=== PATIENT | female | born 1960 | race Caucasian/White ===

== ENCOUNTER → 2017-01-18 | Outpatient (CLI) | payer OTHER ==
--- NOTE | 2017-01-19 10:33 | MM ---
Reason for exam: screening (asymptomatic). Last mammogram was performed 1 year and 8 months ago. History: Patient is nulliparous. Physical Findings: A clinical breast exam by your physician is recommended on an annual basis and results should be correlated with mammographic findings. MG Screening Mammo w CAD Bilateral CC and MLO view(s) were taken. Prior study comparison: June 03, 2015, bilateral MG screening mammo w CAD. April 17, 2013, bilateral digital screening mammo w/CAD. The breast tissue is heterogeneously dense. This may lower the sensitivity of mammography. Finding: There is a 7 mm equal density (isodense), oval mass in the left breast. ASSESSMENT: Incomplete: need additional imaging evaluation, BI-RAD 0 RECOMMENDATION: Special view mammogram of the left breast. If lesion persists on supplemental views, image directed ultrasound is recommended. [facility] will attempt to contact patient to return for supplemental views and ultrasound if indicated.
== END | disposition home or self-care (01) ==
LOC: RADMAMWWP 08:51
PROVIDERS: ATTEND Obstetrics & Gynecology
DX: Z12.31 Encounter for screening mammogram for malignant neoplasm of breast (principal); R92.2 Inconclusive mammogram

== ENCOUNTER → 2017-01-20 | Outpatient (CLI) | payer OTHER ==
--- NOTE | 2017-01-25 13:50 | MM ---
Reason for exam: additional evaluation requested from abnormal screening. Last mammogram was performed less than 1 month ago. History: Patient is nulliparous. Taking estrogen for 2 months beginning at age 56. Took other hormone for 6 years beginning at age 50. Physical Findings: Nurse did not find any significant physical abnormalities on exam. MG 3D Work Up W/Cad LT CC and MLO view(s) were taken of the left breast. Prior study comparison: January 18, 2017, bilateral MG screening mammo w CAD. June 03, 2015, bilateral MG screening mammo w CAD. There are scattered fibroglandular densities. Finding: There is a typically stable benign 4 mm mass located 5 cm from the nipple in the lower outer quadrant, middle position of the left breast. No significant changes in finding since January 18, 2017 and June 03, 2015. These results were verbally communicated with the patient and result sheet given to the patient on 01/20/17. ASSESSMENT: Probably benign, BI-RAD 3 RECOMMENDATION: Follow-up diagnostic mammogram of the left breast in 6 months.
== END | disposition home or self-care (01) ==
LOC: RADMAMWWP 13:50
PROVIDERS: ATTEND Obstetrics & Gynecology
DX: R92.8 Other abnormal and inconclusive findings on diagnostic imaging of breast (principal)
CPT/HCPCS: G0206; G0279

== ENCOUNTER → 2017-06-08 | Outpatient (CLI) | payer OTHER ==
--- NOTE | 2017-06-08 09:34 | MM ---
Reason for exam: follow-up at short interval from prior study. Last mammogram was performed 5 months ago. History: Patient is nulliparous. Taking estrogen for 2 months beginning at age 56. Took other hormone for 6 years beginning at age 50. Physical Findings: Nurse did not find any significant physical abnormalities on exam. MG 3D Diag Mammo W/Cad LT CC, MLO, and ML view(s) were taken of the left breast. Prior study comparison: January 20, 2017, left breast MG 3d work up w/cad LT. January 18, 2017, bilateral MG screening mammo w CAD. The breast tissue is heterogeneously dense. This may lower the sensitivity of mammography. A 6mm circumscribed oval mass in the lower outer quadrant middle to posterior depth is unchanged for 6 months and could represent a benign lesion like a cyst. Continued short interval follow up recommended. These results were verbally communicated with the patient and result sheet given to the patient on 06/08/17. ASSESSMENT: Probably benign, BI-RAD 3 RECOMMENDATION: Follow-up diagnostic mammogram of both breasts in 6 months. Back on schedule.
--- NOTE | 2017-06-08 13:37 | BD ---
EXAMINATION TYPE: MG DEXA axial skeleton. DATE OF EXAM: 06/08/2017 COMPARISON: NONE CLINICAL HISTORY: 56-year-old female with osteopenia Height: 5 FT 6 IN Weight: 184 FRAX RISK QUESTIONS: Alcohol (3 or more units per day): NO Family History (Parent hip fracture): YES Glucocorticoids (More than 3mos): NO (Ex: prednisone, prednisolone, methylprednisolone, dexamethasone, and hydrocortisone). History of Fracture in Adulthood: NO Secondary Osteoporosis: 1. Type 1 Diabetes: NO 2. Hyperthyroidism: NO 3. Menopause before 45: NO 4. Malnutrition: NO 5. Chronic liver disease: NO Rheumatoid Arthritis: NO Current Tobacco Use: NO RISK FACTORS HISTORY OF: Active: YES Postmenopausal woman: PART HYST AGE 36 Take estrogen and/or progesterone medications: ESTROGEN PATCH How lon-8 MONTHS MEDICATIONS: Thyroid Medications: YES Which medication: LEVOTHYROXINE How Lon YRS Additional Medications: ESTROGEN PATCH,LEVOTHYROXINE, LISINOPRIL Additional History: EXAM MEASUREMENTS: Bone mineral densitometry was performed using the [employer] System. Bone mineral density as measured about the Lumbar spine is: ----- L1-L4(G/cm2): 1.315 T Score Values are as follows: ----- L2: 0.8 ----- L3: 1.1 ----- L4: 1.8 ----- L1-L4: 1.1 Bone mineral density has: Decreased -1.0% since study of: 2012 Bone mineral density about the R hip (g/cm2): 0.832 Bone mineral density about the L hip (g/cm2): 0.833 T Score values are as follows: -----R Neck: -1.5 -----L Neck: -1.5 -----R Total: 0.2 -----L Total: 0.4 Bone mineral density has: Decreased -1.3 % since study of: 2012 IMPRESSION: Osteopenia (T Score between -2.5 and -1 as noted by T score values in both hips). There is slightly increased risk of fracture and the patient may be considered for treatment. Re-Scre en 2-5 years. NOTE: T-SCORE=SD OF THE YOUNG ADULT MEAN.
== END | disposition home or self-care (01) ==
LOC: RADMAMWWP 08:03
PROVIDERS: ATTEND Obstetrics & Gynecology
DX: Z12.31 Encounter for screening mammogram for malignant neoplasm of breast (principal); M85.851 Other specified disorders of bone density and structure, right thigh; M85.852 Other specified disorders of bone density and structure, left thigh
CPT/HCPCS: 77080; G0206; G0279

== ENCOUNTER → 2018-01-19 | Outpatient (CLI) | payer OTHER ==
--- NOTE | 2018-01-19 10:01 | MM ---
Reason for exam: additional evaluation requested from prior study. Last mammogram was performed 7 months ago. History: Patient is nulliparous. Taking estrogen for 2 months beginning at age 56. Took other hormone for 6 years beginning at age 50. Physical Findings: Nurse did not find any significant physical abnormalities on exam. MG 3D Diag Mammo W/Cad CHARLIE Bilateral CC and MLO view(s) were taken. Prior study comparison: June 08, 2017, left breast MG 3d diag mammo w/cad LT. January 20, 2017, left breast MG 3d work up w/cad LT. The breast tissue is heterogeneously dense. This may lower the sensitivity of mammography. No suspicious abnormality. Left central lower focal asymmetry is stable from 2014. These results were verbally communicated with the patient and result sheet given to the patient on 01/19/18. ASSESSMENT: Benign, BI-RAD 2 RECOMMENDATION: Routine screening mammogram of both breasts in 1 year.
== END | disposition home or self-care (01) ==
LOC: RADMAMWWP 08:34
PROVIDERS: ATTEND Obstetrics & Gynecology
DX: R92.8 Other abnormal and inconclusive findings on diagnostic imaging of breast (principal)
CPT/HCPCS: 77062; 77066

== ENCOUNTER → 2018-02-28 | Outpatient (CLI) | payer OTHER ==
--- NOTE | 2018-02-28 15:22 | US ---
EXAMINATION TYPE: US venous doppler duplex LE RT DATE OF EXAM: 02/28/2018 2:25 PM COMPARISON: NONE CLINICAL HISTORY: M25.561 Pain in right knee. Right knee and ankle pain and swelling SIDE PERFORMED: Right TECHNIQUE: The lower extremity deep venous system is examined utilizing real time linear array sonog david with graded compression, doppler sonography and color-flow sonography. VESSELS IMAGED: External Iliac Vein (EIV) Common Femoral Vein Deep Femoral Vein Greater Saphenous Vein * Femoral Vein Popliteal Vein Small Saphenous Vein * Proximal Calf Veins (* superficial vessels) Grayscale, color doppler, spectral doppler imaging performed of the deep veins of the right lower ext remity. There is normal flow, compressibility, vascular waveforms. Right Leg: Appears negative for DVT IMPRESSION: No sonographic evidence of deep venous thrombosis within the right lower extremity.
== END | disposition home or self-care (01) ==
LOC: RADUSWWP 13:57
PROVIDERS: ATTEND Family Medicine
DX: M25.561 Pain in right knee (principal)

== ENCOUNTER → 2018-04-24 | Outpatient (CLI) | payer OTHER ==
--- NOTE | 2018-04-24 10:33 | ECHOS ---
STRESS ECHOCARDIOGRAM INDICATIONS: Chest pain. MEDICATIONS: Synthroid, lisinopril. BASELINE HEART RATE: 73 BASELINE BLOOD PRESSURE: 125/64 MAXIMUM HEART RATE: 158 MAXIMUM BLOOD PRESSURE: 198/91 85% MPHR: 135 100% MPHR: 163 METS: 9.1 MAXIMUM STAGE REACHED: 3 TOTAL EXERCISE TIME: 7:30 CLINICAL INFORMATION: Baseline rhythm is sinus mechanism, rate 73, right axis deviation, poor R-wave progression, baseline blood pressure 125/64 with Hg. Patient exercised on Hill protocol for 7 minute 30 seconds reaching a peak rate of 158 beats per minute which is equal to 97% maximum predicted heart rate. Peak blood pressure 198/91 mmHg. Test was terminated due to fatigue. There was no chest pain. Electrocardiograph monitoring revealed no evidence of diagnostic ischemic ST deviation. FINDINGS: Baseline echocardiogram revealed normal wall thickening motion at peak exercise there was normal wall motion augmentation with no hypokinesis or dyskinesis. CONCLUSION: 1. Average exercise tolerance with normal cardiac response to exercise. 2. Normal stress echocardiogram with no evidence of stress-induced ischemia. MMODL / IJN: [id number] /
== END | disposition home or self-care (01) ==
LOC: RADNMMAIN 08:53
PROVIDERS: ATTEND Family Medicine
DX: R07.89 Other chest pain (principal)
CPT/HCPCS: 93351

== ENCOUNTER → 2019-07-17 | Outpatient (CLI) | payer BC ==
--- NOTE | 2019-07-17 11:31 | BD ---
EXAMINATION TYPE: Axial Bone Density DATE OF EXAM: 07/17/2019 COMPARISON: 06/08/2017 CLINICAL HISTORY: osteopenia Height: 5'4 3/4 Weight: 182 FRAX RISK QUESTIONS: Family History (Parent hip fracture): y Secondary Osteoporosis: 3. Menopause before 45: y RISK FACTORS HISTORY OF: Postmenopausal woman: y Take estrogen and/or progesterone medications: y How lon 1/2 yrs. MEDICATIONS: Thyroid Medications: Which medication: Levothyroxine How Lon years Additional Medications: blood pressure, Additional History: EXAM MEASUREMENTS: Bone mineral densitometry was performed using the [facility]. Bone mineral density as measured about the Lumbar spine is: ----- L1-L4(G/cm2): 1.334 T Score Values are as follows: ----- L2: 1.2 ----- L3: 1.2 ----- L4: 1.8 ----- L1-L4:1.3 Bone mineral density has: Increased 1.4% since study of: 06/08/2017 Bone mineral density about the R hip (g/cm2): 0.822 Bone mineral density about the L hip (g/cm2): 0.833 T Score values are as follows: -----R Neck: -1.6 -----L Neck: -1.5 -----R Total: 0.0 -----L Total: 0.5 Bone mineral density has: Decreased -0.5% since study of: 06/08/2017 IMPRESSION: Osteopenia (T Score between -2.5 and -1). There is slightly increased risk of fracture and the patient may be considered for treatment. Re-Screen 2-5 years. NOTE: T-SCORE=SD OF THE YOUNG ADULT MEAN.
--- NOTE | 2019-07-18 12:01 | MM ---
Reason for exam: screening (asymptomatic). Last mammogram was performed 1 year and 6 months ago. History: Patient is nulliparous. Taking estrogen for 2 months beginning at age 56. Took other hormone for 6 years beginning at age 50. Physical Findings: A clinical breast exam by your physician is recommended on an annual basis and results should be correlated with mammographic findings. MG 3D Screening Mammo W/Cad Bilateral CC and MLO view(s) were taken. Prior study comparison: January 19, 2018, bilateral MG 3d diag mammo w/cad CHARLIE. June 08, 2017, left breast MG 3d diag mammo w/cad LT. The breast tissue is heterogeneously dense. This may lower the sensitivity of mammography. There is chronic nodularity in the left breast. There is no discrete abnormality. ASSESSMENT: Benign, BI-RAD 2 RECOMMENDATION: Routine screening mammogram of both breasts in 1 year.
== END | disposition home or self-care (01) ==
LOC: RADMAMWWP 08:02
PROVIDERS: ATTEND Obstetrics & Gynecology
DX: Z12.31 Encounter for screening mammogram for malignant neoplasm of breast (principal); M85.80 Other specified disorders of bone density and structure, unspecified site
CPT/HCPCS: 77063; 77067; 77080

== ENCOUNTER 2019-08-09 06:53 | Emergency (ER) | payer BC ==
[2019-08-09 07:00] VITALS: TEMP 97.9
[2019-08-09] MEDS ORDERED: SODIUM CHLORIDE 0.9% 1,000 ML IV STA (07:14)
[2019-08-09] MEDS ORDERED: ONDANSETRON 4 MG/2 ML VIAL IVP STA (07:14)
[2019-08-09] MEDS ORDERED: SODIUM CHLORIDE 0.9% 500 ML 500 ML IV STA (07:14)
[2019-08-09] MEDS ORDERED: ENALAPRILAT 1.25 MG/ML 1 ML VIAL IVP STA (07:15)
--- NOTE | 2019-08-09 07:34 | ED ---
General Adult HPI - General Chief complaint: Nausea/Vomiting/Diarrhea Stated complaint: Vomiting Time Seen by Provider: 08/09/19 07:05 Source: patient, RN notes reviewed Mode of arrival: ambulatory Limitations: no limitations - History of Present Illness Initial comments: This is a 59-year-old female presents emergency Department chief complaint of headache, vomiting. Patient states that she started with severe pounding headache on Tuesday states that she started vomiting throughout the day cannot keep anything down. Patient states that she woke up on Tuesday felt a little better but states that today she developed worsening pain in which she cannot keep things down she's been unable to keep down any of her medications for hypothyroidism, hypertension. She states that she stepped migraines and has not had a headache several years. She has any focal weakness denies fevers or chills. Did admit to feeling flushed, warm feeling but states is usually associated with vomiting. She also fell last night she had some leg cramps, felt her heart racing and states that she had leg tightness. She states that subsided. Denies any localized abdominal pain no diarrhea no constipation. - Related Data Previous Rx's Medication Instructions Recorded Ondansetron Odt [Zofran Odt] 4 mg PO Q8HR PRN #10 tab 08/09/19 Allergies Allergy/AdvReac Type Severity Reaction Status Date / Time bacitracin Allergy Swelling Verified 08/09/19 07:02 [From Triple Antibiotic] neomycin Allergy Swelling Verified 08/09/19 07:02 [From Triple Antibiotic] peanut [Peanut Butter] Allergy Swelling Verified 08/09/19 07:02 polymyxin B Allergy Swelling Verified 08/09/19 07:02 [From Triple Antibiotic] shellfish derived [Shellfish] Allergy Swelling Verified 08/09/19 07:02 Review of Systems ROS Statement: Those systems with pertinent positive or pertinent negative responses have been documented in the HPI. ROS Other: All systems not noted in ROS Statement are negative. Past Medical History Past Medical History: Hypertension, Thyroid Disorder History of Any Multi-Drug Resistant Organisms: None Reported Past Surgical History: Hysterectomy Past Psychological History: No Psychological Hx Reported Smoking Status: Never smoker Past Alcohol Use History: None Reported Past Drug Use History: None Reported General Exam Limitations: no limitations General appearance: alert, in no apparent distress Head exam: Present: atraumatic, normocephalic, normal inspection Eye exam: Present: normal appearance, PERRL, EOMI. Absent: scleral icterus, conjunctival injection, periorbital swelling ENT exam: Present: normal exam, normal oropharynx, mucous membranes moist Neck exam: Present: normal inspection, full ROM. Absent: tenderness, meni ngismus, lymphadenopathy Respiratory exam: Present: normal lung sounds bilaterally. Absent: respiratory distress, wheezes, rales, rhonchi, stridor Cardiovascular Exam: Present: regular rate, normal rhythm, normal heart sounds. Absent: systolic murmur, diastolic murmur, rubs, gallop, clicks GI/Abdominal exam: Present: soft, normal bowel sounds. Absent: distended, tenderness, guarding, rebound, rigid Back exam: Present: full ROM. Absent: CVA tenderness (R), CVA tenderness (L) Neurological exam: Present: alert, oriented X3, CN II-XII intact, reflexes normal. Absent: motor sensory deficit Skin exam: Present: warm, dry, intact, normal color. Absent: rash Course Vital Signs 08/09/19 08/09/19 08/09/19 06:56 07:00 08:00 Temperature 97.9 F 97.9 F Pulse Rate 88 78 Respiratory 18 20 20 Rate Blood Pressure 181/115 165/96 O2 Sat by Pulse 99 99 96 Oximetry Medical Decision Making - Medical Decision Making Patient had CT of her brain which was unremarkable, labs show mild acidosis though this related to dehydration. Patient has no complaints of abdominal pain headache is completely resolved after antiemetics, fluids. Patient is able tolerate oral intake. She has no current complaints of chest pain or abdominal pain or headache. Patient's vitals are improved, blood pressure greatly improved after Vasotec. Patient is discharged in stable condition. Patient feels comfortable with close follow-up. - Lab Data Result diagrams: 08/09/19 07:35 08/09/19 07:35 Lab Results 08/09/19 08/09/19 08/09/19 Range/Units 07:35 07:35 07:35 WBC 7.7 (3.8-10.6) k/uL RBC 5.35 (3.80-5.40) m/uL Hgb 16.0 (11.4-16.0) gm/dL Hct 45.1 (34.0-46.0) % MCV 84.4 (80.0-100.0) fL MCH 30.0 (25.0-35.0) pg MCHC 35.5 (31.0-37.0) g/dL RDW 13.0 (11.5-15.5) % Plt Count 255 (150-450) k/uL Neutrophils % 71 % Lymphocytes % 21 % Monocytes % 5 % Eosinophils % 1 % Basophils % 0 % Neutrophils # 5.5 (1.3-7.7) k/uL Lymphocytes # 1.6 (1.0-4.8) k/uL Monocytes # 0.4 (0-1.0) k/uL Eosinophils # 0.1 (0-0.7) k/uL Basophils # 0.0 (0-0.2) k/uL Sodium 141 (137-145) mmol/L Potassium 4.8 (3.5-5.1) mmol/L Chloride 107 (98-107) mmol/L Carbon Dioxide 21 L (22-30) mmol/L Anion Gap 13 mmol/L BUN 14 (7-17) mg/dL Creatinine 0.66 (0.52-1.04) mg/dL Est GFR (CKD-EPI)AfAm >90 (>60 ml/min/1.73 sqM) Est GFR (CKD-EPI)NonAf >90 (>60 ml/min/1.73 sqM) Glucose 100 H (74-99) mg/dL Calcium 10.1 (8.4-10.2) mg/dL Magnesium 2.1 (1.6-2.3) mg/dL Total Bilirubin 2.1 H (0.2-1.3) mg/dL AST 55 H (14-36) U/L ALT 43 (9-52) U/L Alkaline Phosphatase 64 (38-126) U/L Troponin I <0.012 (0.000-0.034) ng/mL Total Protein 8.4 H (6.3-8.2) g/dL Albumin 5.3 H (3.5-5.0) g/dL Amylase 64 (30-110) U/L Lipase 73 (23-300) U/L Urine Color Urine Appearance (Clear) Urine pH (5.0-8.0) Ur Specific Dumont (1.001-1.035) Urine Protein (Negative) Urine Glucose (UA) (Negative) Urine Ketones (Negative) Urine Blood (Negative) Urine Nitrite (Negative) Urine Bilirubin (Negative) Urine Urobilinogen (<2.0) mg/dL Ur Leukocyte Esterase (Negative) 08/09/19 Range/Units 08:47 WBC (3.8-10.6) k/uL RBC (3.80-5.40) m/uL Hgb (11.4-16.0) gm/dL Hct (34.0-46.0) % MCV (80.0-100.0) fL MCH (25.0-35.0) pg MCHC (31.0-37.0) g/dL RDW (11.5-15.5) % Plt Count (150-450) k/uL Neutrophils % % Lymphocytes % % Monocytes % % Eosinophils % % Basophils % % Neutrophils # (1.3-7.7) k/uL Lymphocytes # (1.0-4.8) k/uL Monocytes # (0-1.0) k/uL Eosinophils # (0-0.7) k/uL Basophils # (0-0.2) k/uL Sodium (137-145) mmol/L Potassium (3.5-5.1) mmol/L Chloride (98-107) mmol/L Carbon Dioxide (22-30) mmol/L Anion Gap mmol/L BUN (7-17) mg/dL Creatinine (0.52-1.04) mg/dL Est GFR (CKD-EPI)AfAm (>60 ml/min/1.73 sqM) Est GFR (CKD-EPI)NonAf (>60 ml/min/1.73 sqM) Glucose (74-99) mg/dL Calcium (8.4-10.2) mg/dL Magnesium (1.6-2.3) mg/dL Total Bilirubin (0.2-1.3) mg/dL AST (14-36) U/L ALT (9-52) U/L Alkaline Phosphatase (38-126) U/L Troponin I (0.000-0.034) ng/mL Total Protein (6.3-8.2) g/dL Albumin (3.5-5.0) g/dL Amylase (30-110) U/L Lipase (23-300) U/L Urine Color Light Yellow Urine Appearance Clear (Clear) Urine pH 6.5 (5.0-8.0) Ur Specific [place] 1.007 (1.001-1.035) Urine Protein Negative (Negative) Urine Glucose (UA) Negative (Negative) Urine Ketones 1+ H (Negative) Urine Blood Negative (Negative) Urine Nitrite Negative (Negative) Urine Bilirubin Negative (Negative) Urine Urobilinogen <2.0 (<2.0) mg/dL Ur Leukocyte Esterase Negative (Negative) Disposition Clinical Impression: Nausea & vomiting, Migraine, Dehydration Disposition: HOME SELF-CARE Condition: Stable Instructions (If sedation given, give patient instructions): Acute Nausea and Vomiting (ED) Additional Instructions: Please return to the Emergency Department if symptoms worsen or any other concerns. Prescriptions: Ondansetron Odt [Zofran Odt] 4 mg PO Q8HR PRN #10 tab PRN Reason: Nausea Is patient prescribed a controlled substance at d/c from ED?: No Referrals: Haile Shaikh DO [Primary Care Provider] - 1-2 days Time of Disposition: 09:57
[2019-08-09 08:02] VITALS: PULSE 78; RESP 20
--- NOTE | 2019-08-09 08:09 | XR ---
EXAMINATION TYPE: XR chest 2V DATE OF EXAM: 08/09/2019 COMPARISON: 06/12/2013 HISTORY: Chest pain TECHNIQUE: Frontal and lateral views of the chest are obtained. FINDINGS: There is no focal air space opacity. No evidence for pneumothorax. No pleural effusion. The cardiac silhouette size is within normal limits. The osseous structures are grossly intact. IMPRESSION: 1. No acute cardiopulmonary process.
--- NOTE | 2019-08-09 08:15 | CT ---
EXAMINATION TYPE: CT brain wo con DATE OF EXAM: 08/09/2019 COMPARISON: None HISTORY: GAMBLE, vomiting CT DLP: 1074.[address] of the brain was performed. The ventricles, basal cisterns and sulci overlying the cerebral convexities demonstrate mild enlargem ent. There is no evidence for intracranial hemorrhage or sulcal effacement. There is decreased attenuation about the periventricular white matter and deep white matter of both c erebral hemispheres, compatible with chronic small vessel ischemia. Differential diagnosis does inclu de demyelination. No mass effects are seen.No midline shift. Osseous calvarium is intact. Mucous retention cyst or polyp left maxillary sinus. If symptoms persist consider MRI. IMPRESSION: 1. Age related atrophic and chronic small vessel ischemic change without acute intracranial process s een at this time.
[2019-08-09] MEDS ORDERED: KETOROLAC 30 MG/ML 1 ML VIAL IVP STA (08:31)
[2019-08-09 08:42] LABS: Basophils % (A) 0 %; Eosinophils # (A) 0.1 k/uL (0-0.7); Eosinophils % (A) 1 %; HCT 45.1 % (34.0-46.0); Lymphocytes # (A) 1.6 k/uL (1.0-4.8); Lymphocytes % (A) 21 %; MCHC 35.5 g/dL (31.0-37.0); MCV 84.4 fL (80.0-100.0); Mean Platelet Volume 7.5; Monocytes # (A) 0.4 k/uL (0-1.0); Monocytes % (A) 5 %; Neutrophils # (A) 5.5 k/uL (1.3-7.7); Neutrophils % (A) 71 %; Platelet Count 255 k/uL (150-450); RBC 5.35 m/uL (3.80-5.40); WBC 7.7 k/uL (3.8-10.6)
[2019-08-09 08:52] LABS: ALT 43 U/L (9-52); AST 55 U/L (14-36); African American GFR (CKD) >90 (>60 ml/min/1.73 sqM); Albumin 5.3 g/dL (3.5-5.0); Alkaline Phosphatase 64 U/L (38-126); Amylase 64 U/L (30-110); Anion Gap 13 mmol/L; Blood Urea Nitrogen 14 mg/dL (7-17); Calcium 10.1 mg/dL (8.4-10.2); Carbon Dioxide 21 mmol/L (22-30); Chloride 107 mmol/L (98-107); Glucose 100 mg/dL (74-99); Magnesium 2.1 mg/dL (1.6-2.3); Non-African American GFR(CKD) >90 (>60 ml/min/1.73 sqM); Potassium 4.8 mmol/L (3.5-5.1); Sodium 141 mmol/L (137-145); Total Bilirubin 2.1 mg/dL (0.2-1.3); Total Protein 8.4 g/dL (6.3-8.2)
[2019-08-09 09:02] LABS: Appearance,Urine Clear (Clear); Bilirubin,Urine Negative (Negative); Blood,Urine Negative (Negative); Color,Urine Light Yellow; Glucose,Urine (UA) Negative (Negative); Ketones,Urine 1+ (Negative); Leukocyte Esterase,Urine Negative (Negative); Nitrite,Urine Negative (Negative); PH, Urine 6.5 (5.0-8.0); Protein,Urine Negative (Negative); Specific Gravity,Urine 1.007 (1.001-1.035); Urobilinogen,Urine <2.0 mg/dL (<2.0)
[2019-08-09 10:14] VITALS: BP 158/91
== END 2019-08-09 10:16 | disposition home or self-care (01) ==
LOC: EC 06:53
DX: G43.909 Migraine, unspecified, not intractable, without status migrainosus (principal); E86.0 Dehydration; E87.2 Acidosis; E03.9 Hypothyroidism, unspecified; I10 Essential (primary) hypertension; Z88.1 Allergy status to other antibiotic agents; Z91.013 Allergy to seafood; Z88.8 Allergy status to other drugs, medicaments and biological substances
CPT/HCPCS: 36415; 93005; 80053; 82150; 83690; 83735; 84484; 85025; 81003; 71046; 70450; 99284; 96374; 96375; 96361; J2405

== ENCOUNTER → 2021-02-12 | Outpatient (CLI) | payer BC ==
--- NOTE | 2021-02-13 11:51 | MM ---
Reason for exam: screening (asymptomatic). Last mammogram was performed 1 year and 7 months ago. History: Patient is postmenopausal and is nulliparous. Taking estrogen for 2 months beginning at age 56. Took other hormone for 6 years beginning at age 50. Physical Findings: A clinical breast exam by your physician is recommended on an annual basis and results should be correlated with mammographic findings. MG 3D Screening Mammo W/Cad Bilateral CC and MLO view(s) were taken. Prior study comparison: July 17, 2019, bilateral MG 3d screening mammo w/cad. January 19, 2018, bilateral MG 3d diag mammo w/cad CHARLIE. The breast tissue is heterogeneously dense. This may lower the sensitivity of mammography. Previous mammotome biopsy in the left breast. No significant changes when compared with prior studies. ASSESSMENT: Benign, BI-RAD 2 RECOMMENDATION: Routine screening mammogram of both breasts in 1 year.
== END | disposition home or self-care (01) ==
LOC: RADMAMWWP 07:09
PROVIDERS: ATTEND Obstetrics & Gynecology
DX: Z12.31 Encounter for screening mammogram for malignant neoplasm of breast (principal); Z78.0 Asymptomatic menopausal state
CPT/HCPCS: 77063; 77067

== ENCOUNTER 2022-05-09 14:06 | Emergency (ER) | payer BC ==
[2022-05-09] MEDS ORDERED: SODIUM CHLORIDE 0.9% 2,000 ML IV STA (16:41)
[2022-05-09] MEDS ORDERED: ONDANSETRON 4 MG/2 ML VIAL IVP STA (16:41)
[2022-05-09 17:31] LABS: ALT 44 U/L (4-34); AST 43 U/L (14-36); African American GFR (CKD) >90 (>60 ml/min/1.73 sqM); Albumin 5.3 g/dL (3.5-5.0); Alkaline Phosphatase 79 U/L (38-126); Anion Gap 16 mmol/L; Basophils % (A) 1 %; Blood Urea Nitrogen 19 mg/dL (7-17); Calcium 9.9 mg/dL (8.4-10.2); Carbon Dioxide 18 mmol/L (22-30); Chloride 105 mmol/L (98-107); Eosinophils % (A) 0 %; Glucose 136 mg/dL (74-99); HCT 48.6 % (34.0-46.0); HGB 16.8 gm/dL (11.4-16.0); Lipase 69 U/L (23-300); Lymphocytes % (A) 12 %; MCH 30.2 pg (25.0-35.0); MCHC 34.6 g/dL (31.0-37.0); MCV 87.2 fL (80.0-100.0); Mean Platelet Volume 7.4; Monocytes # (A) 0.2 k/uL (0-1.0); Monocytes % (A) 3 %; Neutrophils # (A) 6.7 k/uL (1.3-7.7); Neutrophils % (A) 83 %; Non-African American GFR(CKD) >90 (>60 ml/min/1.73 sqM); Platelet Count 239 k/uL (150-450); RBC 5.57 m/uL (3.80-5.40); RDW 13.3 % (11.5-15.5); Sodium 139 mmol/L (137-145); Total Bilirubin 1.3 mg/dL (0.2-1.3); Total Protein 8.1 g/dL (6.3-8.2)
[2022-05-09 17:38] LABS: Potassium 4.7 mmol/L (3.5-5.1)
[2022-05-09 18:28] LABS: Appearance,Urine Clear (Clear); Bacteria,Urine Occasional /hpf; Bilirubin,Urine Negative (Negative); Blood,Urine Negative (Negative); Color,Urine Yellow; Glucose,Urine (UA) Negative (Negative); Ketones,Urine Trace (Negative); Leukocyte Esterase,Urine Trace (Negative); Nitrite,Urine Negative (Negative); PH, Urine 6.5 (5.0-8.0); Protein,Urine Negative (Negative); RBC,Urine 1 /hpf (0-5); Specific Gravity,Urine 1.004 (1.001-1.035); Squamous Epithelial Cell,Urine <1 /hpf (0-4); Urobilinogen,Urine <2.0 mg/dL (<2.0); WBC,Urine 4 /hpf (0-5)
--- NOTE | 2022-05-09 19:48 | US ---
EXAMINATION TYPE: US abdomen limited DATE OF EXAM: 05/09/2022 COMPARISON: NONE CLINICAL HISTORY: vomiting. nausea and vomiting for 1 day. TECHNIQUE: Multiple sonographic images of the right upper quadrant are obtained. FINDINGS: EXAM MEASUREMENTS: Liver Length: 15.0 cm Gallbladder Wall: 0.3 cm CBD: 0.3 cm Right Kidney: 11.2 x 5.1 x 4.6 cm NURSERYPERSON NOTES: *limitations due to large amount of overlying bowel content Pancreas: Obscured by bowel gas Liver: attenuating, heterogeneous Gallbladder: no evidence of stones Evidence for sonographic Smith's sign: no CBD: limited evaluation Right Kidney: no evidence of hydronephrosis IMPRESSION: No gallstones or dilated ducts. There is echogenic liver suggestive of fatty infiltration.
[2022-05-09] MEDS ORDERED: PROCHLORPERAZINE INJ 10 MG/2 ML VIAL IVP STA (20:06)
--- NOTE | 2022-05-09 20:07 | ED ---
Abdominal Pain HPI - General Chief Complaint: Abdominal Pain Stated Complaint: urogenital Time Seen by Provider: 05/09/22 16:31 Source: patient Mode of arrival: ambulatory Limitations: no limitations - History of Present Illness Initial Comments: Patient is a 61-year-old female with past medical history of hypertension and urinary tract infection who presents to the emergency department with a chief complaint of nausea and vomiting. Patient states she felt that she had a urinary tract infection on Tuesday due to burning with urination so she took Azo. Patient then had several episodes of nausea and vomiting. Reports consistent nausea and vomiting since Tuesday with little ability to tolerate food and liquid. Denies fever, chills, abdominal pain. Patient states her burning with urination subsided on Tuesday. Denies back pain, side pain, blood in the urine. Does note that she often has reaction to new medication which typically includes nausea and vomiting. - Related Data Previous Rx's Medication Instructions Recorded Ondansetron Odt [Zofran Odt] 4 mg PO Q8HR PRN #10 tab 08/09/19 Ondansetron Odt [Zofran Odt] 4 mg PO Q8HR PRN #12 tab 05/09/22 Allergies Allergy/AdvReac Type Severity Reaction Status Date / Time bacitracin Allergy Swelling Verified 05/09/22 15:07 [From Triple Antibiotic] neomycin Allergy Swelling Verified 05/09/22 15:07 [From Triple Antibiotic] peanut [Peanut Butter] Allergy Swelling Verified 05/09/22 15:07 polymyxin B Allergy Swelling Verified 05/09/22 15:07 [From Triple Antibiotic] shellfish derived [Shellfish] Allergy Swelling Verified 05/09/22 15:07 Review of Systems ROS Statement: Those systems with pertinent positive or pertinent negative responses have been documented in the HPI. ROS Other: All systems not noted in ROS Statement are negative. Past Medical History Past Medical History: Hypertension, Thyroid Disorder History of Any Multi-Drug Resistant Organisms: None Reported Past Surgical History: Hysterectomy Past Psychological History: No Psychological Hx Reported Smoking Status: Never smoker Past Alcohol Use History: None Reported Past Drug Use History: None Reported General Exam Limitations: no limitations General appearance: alert, in no apparent distress Neck exam: Present: normal inspection. Absent: tenderness, meningismus, lymphadenopathy Respiratory exam: Present: normal lung sounds bilaterally. Absent: respiratory distress, wheezes, rales, rhonchi, stridor Cardiovascular Exam: Present: normal rhythm, tachycardia, normal heart sounds. Absent: regular rate, systolic murmur, diastolic murmur, rubs, gallop, clicks GI/Abdominal exam: Present: soft, normal bowel sounds. Absent: distended, tenderness, guarding, rebound, rigid Back exam: Absent: CVA tenderness (R), CVA tenderness (L) Neurological exam: Present: alert, oriented X3, CN II-XII intact Psychiatric exam: Present: normal affect, normal mood Skin exam: Present: warm, dry, intact, normal color. Absent: rash Course Vital Signs 05/09/22 05/09/22 05/09/22 15:05 17:57 20:13 Temperature 98.1 F Pulse Rate 110 H 93 96 Respiratory 20 18 19 Rate Blood Pressure 204/112 173/93 180/107 O2 Sat by Pulse 96 96 96 Oximetry 05/09/22 05/09/22 05/09/22 20:25 20:38 21:54 Temperature Pulse Rate 85 Respiratory Rate Blood Pressure 178/100 172/105 148/85 O2 Sat by Pulse Oximetry 05/09/22 21:57 Temperature 97.9 F Pulse Rate 85 Respiratory 18 Rate Blood Pressure 148/85 O2 Sat by Pulse 95 Oximetry Medical Decision Making - Medical Decision Making This is a 61-year-old female presents for intractable nausea and vomiting. Patient initially presents hypertensive at 204/112 and tachycardia 110. The abdomen is soft and nontender. There is no CVA tenderness. Laboratory studies obtained. There is no leukocytosis. Kidney function is normal. AST and ALT are minimally elevated at 43 and 44. Urinalysis is not convincing for infection. Patient given fluid bolus and nausea medication which controlled nausea. She was able to tolerate water in the emergency department. Tachycardia resolved. With consistent vomiting and changes in liver enzymes, but gallbladder ultrasound was obtained which was negative for gallstones or dilated ducts. Results discussed with patient. At this time there are no diagnostic studies to explain patient's symptoms. Possibly related to a new medication. Patient's blood pressure remained elevated during visit. Patient states she takes lisinopril for high blood pressure but has episodes of vomiting after taking her medication. Patient also reports history of white coat hypertension. Patient given labetalol and clonidine which controlled blood pressure. Patient will be discharged with Zofran. She is encouraged to follow-up with primary care provider regarding her symptoms as well as blood pressure management. Strict return parameters discussed. She verbalizes understanding. Dr. Rea is my attending. - Lab Data Result diagrams: 05/09/22 17:05 05/09/22 17:05 Lab Results 05/09/22 05/09/22 05/09/22 Range/Units 17:05 17:05 18:19 WBC 8.0 (3.8-10.6) k/uL RBC 5.57 H (3.80-5.40) m/uL Hgb 16.8 H (11.4-16.0) gm/dL Hct 48.6 H (34.0-46.0) % MCV 87.2 (80.0-100.0) fL MCH 30.2 (25.0-35.0) pg MCHC 34.6 (31.0-37.0) g/dL RDW 13.3 (11.5-15.5) % Plt Count 239 (150-450) k/uL MPV 7.4 Neutrophils % 83 % Lymphocytes % 12 % Monocytes % 3 % Eosinophils % 0 % Basophils % 1 % Neutrophils # 6.7 (1.3-7.7) k/uL Lymphocytes # 1.0 (1.0-4.8) k/uL Monocytes # 0.2 (0-1.0) k/uL Eosinophils # 0.0 (0-0.7) k/uL Basophils # 0.0 (0-0.2) k/uL Sodium 139 (137-145) mmol/L Potassium 4.7 (3.5-5.1) mmol/L Chloride 105 (98-107) mmol/L Carbon Dioxide 18 L (22-30) mmol/L Anion Gap 16 mmol/L BUN 19 H (7-17) mg/dL Creatinine 0.65 (0.52-1.04) mg/dL Est GFR (CKD-EPI)AfAm >90 (>60 ml/min/1.73 sqM) Est GFR (CKD-EPI)NonAf >90 (>60 ml/min/1.73 sqM) Glucose 136 H (74-99) mg/dL Calcium 9.9 (8.4-10.2) mg/dL Magnesium 2.0 (1.6-2.3) mg/dL Total Bilirubin 1.3 (0.2-1.3) mg/dL AST 43 H (14-36) U/L ALT 44 H (4-34) U/L Alkaline Phosphatase 79 (38-126) U/L Total Protein 8.1 (6.3-8.2) g/dL Albumin 5.3 H (3.5-5.0) g/dL Lipase 69 (23-300) U/L Urine Color Yellow Urine Appearance Clear (Clear) Urine pH 6.5 (5.0-8.0) Ur Specific Switzer 1.004 (1.001-1.035) Urine Protein Negative (Negative) Urine Glucose (UA) Negative (Negative) Urine Ketones Trace H (Negative) Urine Blood Negative (Negative) Urine Nitrite Negative (Negative) Urine Bilirubin Negative (Negative) Urine Urobilinogen <2.0 (<2.0) mg/dL Ur Leukocyte Esterase Trace H (Negative) Urine RBC 1 (0-5) /hpf Urine WBC 4 (0-5) /hpf Ur Squamous Epith Cells <1 (0-4) /hpf Urine Bacteria Occasional H (None) /hpf Influenza Type A RNA (Not Detectd) Influenza Type B (PCR) (Not Detectd) 05/09/22 Range/Units 19:24 WBC (3.8-10.6) k/uL RBC (3.80-5.40) m/uL Hgb (11.4-16.0) gm/dL Hct (34.0-46.0) % MCV (80.0-100.0) fL MCH (25.0-35.0) pg MCHC (31.0-37.0) g/dL RDW (11.5-15.5) % Plt Count (150-450) k/uL MPV Neutrophils % % Lymphocytes % % Monocytes % % Eosinophils % % Basophils % % Neutrophils # (1.3-7.7) k/uL Lymphocytes # (1.0-4.8) k/uL Monocytes # (0-1.0) k/uL Eosinophils # (0-0.7) k/uL Basophils # (0-0.2) k/uL Sodium (137-145) mmol/L Potassium (3.5-5.1) mmol/L Chloride (98-107) mmol/L Carbon Dioxide (22-30) mmol/L Anion Gap mmol/L BUN (7-17) mg/dL Creatinine (0.52-1.04) mg/dL Est GFR (CKD-EPI)AfAm (>60 ml/min/1.73 sqM) Est GFR (CKD-EPI)NonAf (>60 ml/min/1.73 sqM) Glucose (74-99) mg/dL Calcium (8.4-10.2) mg/dL Magnesium (1.6-2.3) mg/dL Total Bilirubin (0.2-1.3) mg/dL AST (14-36) U/L ALT (4-34) U/L Alkaline Phosphatase (38-126) U/L Total Protein (6.3-8.2) g/dL Albumin (3.5-5.0) g/dL Lipase (23-300) U/L Urine Color Urine Appearance (Clear) Urine pH (5.0-8.0) Ur Specific Switzer (1.001-1.035) Urine Protein (Negative) Urine Glucose (UA) (Negative) Urine Ketones (Negative) Urine Blood (Negative) Urine Nitrite (Negative) Urine Bilirubin (Negative) Urine Urobilinogen (<2.0) mg/dL Ur Leukocyte Esterase (Negative) Urine RBC (0-5) /hpf Urine WBC (0-5) /hpf Ur Squamous Epith Cells (0-4) /hpf Urine Bacteria (None) /hpf Influenza Type A RNA Not Detected (Not Detectd) Influenza Type B (PCR) Not Detected (Not Detectd) Disposition Clinical Impression: Nausea and vomiting, Hypertension Disposition: HOME SELF-CARE Condition: Good Instructions (If sedation given, give patient instructions): Acute Nausea and Vomiting (ED) Additional Instructions: Take medication as directed. Please continue to check blood pressure at home. Follow-up with primary care provider in one to 2 days regarding hospital visit and blood pressure. Return to the emergency department if you experience new, concerning, or worsening symptoms. Prescriptions: Ondansetron Odt [Zofran Odt] 4 mg PO Q8HR PRN #12 tab PRN Reason: Nausea Is patient prescribed a controlled substance at d/c from ED?: No Referrals: Haile Shaikh DO [Primary Care Provider] - 1-2 days Time of Disposition: 20:07
[2022-05-09] MEDS ORDERED: LABETALOL 5 MG/ML VIAL MDV IVP STA (20:11)
[2022-05-09 20:25] VITALS: PULSE 85
[2022-05-09] MEDS ORDERED: cloNIDine HCL/PF 100 MCG in SODIUM CHLORIDE 0.9% 100 ML IVPB ONE (20:51)
[2022-05-09 21:54] VITALS: BP 148/85
[2022-05-09 21:58] VITALS: RESP 18; TEMP 97.9
== END 2022-05-09 22:02 | disposition home or self-care (01) ==
LOC: EC 14:06
DX: R11.2 Nausea with vomiting, unspecified (principal); I10 Essential (primary) hypertension; E07.9 Disorder of thyroid, unspecified; Z79.899 Other long term (current) drug therapy; Z20.822 Contact with and (suspected) exposure to COVID-19; Z88.7 Allergy status to serum and vaccine; Z88.6 Allergy status to analgesic agent; Z91.010 Allergy to peanuts; Z91.013 Allergy to seafood
CPT/HCPCS: 36415; 80053; 83690; 83735; 85025; 81001; 87502; 76705; 99284; 96374; 96375; 96361; J0780; J2405; J0735

== ENCOUNTER → 2022-06-07 | Outpatient (CLI) | payer BC ==
--- NOTE | 2022-06-07 09:54 | CT ---
EXAMINATION TYPE: CT abdomen pelvis wo con DATE OF EXAM: 06/07/2022 COMPARISON: None INDICATION: Nausea vomiting and lower abdominal spasm DLP: 549.70 mGycm, Automated exposure control for dose reduction was used. CONTRAST: 0 mL of Isovue 300. Study performed without Oral Contrast TECHNIQUE: Axial images were obtained from above the diaphragm to the pubic rami in the axial plane a t 5 mm thick sections. Reconstructed images are reviewed on the computer in the coronal plane. FINDINGS: Limited CT sections are obtained the lung bases. There is a calcification just above the left diaphr agm compatible with a small granuloma. A tiny 0.3 cm densities in the periphery of the left lung base . Follow-up CT chest in 6 months is recommended for reevaluation.. CT ABDOMEN: Liver: Normal Spleen: Normal Pancreas: Normal Adrenal glands: The adrenal glands are normal. Gallbladder: Normal Kidneys: No masses are evident. No hydronephrosis is present. No cysts are present. No renal stone s are evident. Aorta: Vascular calcification is within the aorta. Inferior vena cava: Normal. CT PELVIS: Loops of bowel within the abdomen and pelvis are normal. There are loops of bowel which are incom pletely distended or lack oral contrast limiting their evaluation. Appendix: Normal as visualized. No dilated tubular structure or inflammatory changes evident. Urinary bladder: Decompressed with limited evaluation Genitourinary structures: Patient is status post hysterectomy. Adnexa appear unremarkable. Osseous structures: No suspicious lytic or sclerotic lesions. Degenerative disc change in the lower l umbar spine. IMPRESSIONS: 1. No acute abdomen pelvis abnormality will come for symptoms. 2. Note is made of a 0.3 cm density inferior lateral left lung base. Follow-up CT chest in 6 months i s recommended.
[2022-06-07 15:10] LABS: Basophils # (A) 0.05 X 10*3/uL (0.00-0.10); Basophils % (A) 0.6 %; Eosinophils # (A) 0.01 X 10*3/uL (0.04-0.35); Eosinophils % (A) 0.1 %; HCT 50.1 % (37.2-46.3); HGB 16.4 g/dL (12.0-15.0); Immature Grans, Automated 0.5 %; Lymphocytes # (A) 1.59 X 10*3/uL (0.90-5.00); Lymphocytes % (A) 20.3 %; MCH 28.7 pg (27.0-32.0); MCHC 32.7 g/dL (32.0-37.0); MCV 87.6 fL (80.0-97.0); Mean Platelet Volume 10.3 fL (9.5-12.2); Monocytes # (A) 0.48 X 10*3/uL (0.20-1.00); Monocytes % (A) 6.1 %; NRBC Per 100 WBC 0 /100 WBCS (0.0-0.0); Neutrophils # (A) 5.65 X 10*3/uL (1.80-7.70); Neutrophils % (A) 72.4 %; Platelet Count 247 X 10*3/uL (140-440); RBC 5.72 X 10*6/uL (4.10-5.20); RDW 12.6 % (11.5-14.5); WBC 7.82 X 10*3/uL (4.50-10.00)
[2022-06-07 16:12] LABS: African American GFR (CKD) 85.5 (60.0-200.0); Albumin 5.2 g/dL (3.8-4.9); Albumin/Globulin Ratio 2.17 (1.60-3.17); Anion Gap 11.6 mmol/L (10.00-18.00); BUN/Creat Ratio 19.37 Ratio (12.00-20.00); Blood Urea Nitrogen 16.5 mg/dL (9.0-27.0); Calcium 10.3 mg/dL (8.7-10.3); Carbon Dioxide 27.2 mmol/L (20.0-27.5); Globulin 2.4 g/dL (1.6-3.3); Non-African American GFR(CKD) 73.7 (60.0-200.0); Potassium 4.6 mmol/L (3.5-5.5); Total Bilirubin 0.8 mg/dL (0.30-1.20); Total Protein 7.6 g/dL (6.2-8.2)
== END | disposition home or self-care (01) ==
LOC: RADCTMAIN 09:03
PROVIDERS: ATTEND Family Medicine
DX: J98.4 Other disorders of lung (principal)
CPT/HCPCS: 74176; 80053; 82150; 83690; 85025

== ENCOUNTER → 2022-09-14 | Outpatient (CLI) | payer BC ==
--- NOTE | 2022-09-14 15:59 | BD ---
EXAMINATION TYPE: Axial Bone Density DATE OF EXAM: 09/14/2022 COMPARISON: 2018 CLINICAL HISTORY: 62 years year old Female. ICD-10 CODE: N95.1,M85.88 Height: 5'4 Weight: 188 FRAX RISK QUESTIONS: Family History (Parent hip fracture): y Secondary Osteoporosis: 3. Menopause before 45: y RISK FACTORS HISTORY OF: Postmenopausal woman: y Take estrogen and/or progesterone medications: y How lon years MEDICATIONS: Thyroid Medications: Which medication: Levothyroxine How Lon years Additional Medications: blood presure Additional History: EXAM MEASUREMENTS: Bone mineral densitometry was performed using the [employer] System. Bone mineral density as measured about the Lumbar spine is: ----- L1-L4(G/cm2): 1.363 T Score Values are as follows: ----- L1: 1.3 ----- L2: 1.4 ----- L3: 1.1 ----- L4: 2.1 ----- L1-L4: 1.5 Bone mineral density has: Increased 1.2% since study of: 07/17/2019 Bone mineral density about the R hip (g/cm2): 0.820 Bone mineral density about the L hip (g/cm2): 0.820 T Score values are as follows: -----R Neck: -1.6 -----L Neck: -1.6 -----R Total: 0.1 -----L Total: 0.4 Bone mineral density has: Decreased -0.4% since study of: 07/17/2019 FRAX%s: The graph provided illustrates a 16.2% chance for a major osteoporotic fx and a 0.8% chance f or the hips probability for fx in 10 years time. IMPRESSION: Osteopenia (T Score between -2.5 and -1). There is slightly increased risk of fracture and the patient may be considered for treatment. Re-Screen 2-5 years. NOTE: T-SCORE=SD OF THE YOUNG ADULT MEAN.
--- NOTE | 2022-09-15 21:53 | MM ---
Reason for Exam: Screening (asymptomatic). Last mammogram was performed 1 year(s) and 7 month(s) ago. Patient History: Menarche at age 14. Patient has no children. Left ovary removed at age 36. Hysterectomy at age 36. Postmenopausal. Currently using Estrogen, for 2 months. Risk Values: Jade 5 year model risk: 1.5%. NCI Lifetime model risk: 7.0%. Prior Study Comparison: 01/19/2018 Bilateral Diagnostic Mammogram, [facility]. 07/17/2019 Bilateral Screening Mammogram, [facility]. 02/12/2021 Bilateral Screening Mammogram, [facility]. Tissue Density: The breast tissue is heterogeneously dense. This may lower the sensitivity of mammography. Findings: Analyzed By CAD. Nodular asymmetric density just above the retroareolar plane on the right MLO view agent to middle depth is unchanged. Chronic nodularity central posterior left breast. No significant change from prior exams. Overall Assessment: Benign, BI-RAD 2 Management: Screening Mammogram of both breasts in 1 year. 1. Patient should continue monthly self breast exams. 2. A clinical breast exam by your physician is recommended on an annual basis. 3. This exam should not preclude additional follow-up of suspicious palpable abnormalities. Electronically signed and approved by: Wilner Monae M.D. Radiologist
== END | disposition home or self-care (01) ==
LOC: RADMAMWWP 14:16
PROVIDERS: ATTEND Obstetrics & Gynecology
DX: Z12.31 Encounter for screening mammogram for malignant neoplasm of breast (principal); M85.89 Other specified disorders of bone density and structure, multiple sites; N95.1 Menopausal and female climacteric states
CPT/HCPCS: 77063; 77067; 77080

== ENCOUNTER → 2023-12-19 | Outpatient (CLI) | payer BC ==
--- NOTE | 2023-12-20 19:35 | MM ---
Reason for Exam: Screening (asymptomatic). Last mammogram was performed 1 year(s) and 3 month(s) ago. Patient History: Menarche at age 14. Patient has no children. Left ovary removed at age 36. Hysterectomy at age 36. Postmenopausal. Currently using Estrogen, for 2 months. Risk Values: Jade 5 year model risk: 1.6%. NCI Lifetime model risk: 6.8%. Prior Study Comparison: 07/17/2019 Bilateral Screening Mammogram, [facility]. 02/12/2021 Bilateral Screening Mammogram, [facility]. 09/14/2022 Bilateral MG 3D screening mammo w/cad, [facility]. Tissue Density: The breasts are heterogeneously dense, which may obscure small masses. Findings: Analyzed By CAD. Chronic nodularity on the left. There is no suspicious group of microcalcifications or new suspicious mass in either breast. Overall Assessment: Benign, BI-RAD 2 Management: Screening Mammogram of both breasts in 1 year. . Patient should continue monthly self-breast exams. A clinical breast exam by your physician is recommended on an annual basis. This exam should not preclude additional follow-up of suspicious palpable abnormalities. Note on Jade scores and lifetime risk: 1. A Jade score greater than 3% is considered moderate risk. If this is the case, consider specialist referral to assess eligibility for a risk reducing agent. 2. If overall lifetime risk for the development of breast cancer is 20% or higher, the patient may qualify for future screening with alternating mammogram and breast MRI. Electronically signed and approved by: Wilner Monae M.D. Radiologist
== END | disposition home or self-care (01) ==
LOC: RADMAMWWP 10:35
PROVIDERS: ATTEND Family Medicine
DX: Z12.31 Encounter for screening mammogram for malignant neoplasm of breast (principal); Z78.0 Asymptomatic menopausal state
CPT/HCPCS: 77063; 77067

== ENCOUNTER → 2025-01-17 | Outpatient (CLI) | payer BC ==
--- NOTE | 2025-01-18 07:37 | MM ---
Reason for Exam: Screening (asymptomatic). Last mammogram was performed 1 year(s) and 1 month(s) ago. Patient History: Menarche at age 14. Patient has no children. Left ovary removed at age 36. Hysterectomy at age 36. Postmenopausal. Currently using Estrogen, for 2 months. Risk Values: Jade 5 year model risk: 1.6%. NCI Lifetime model risk: 6.6%. Prior Study Comparison: 02/12/2021 Bilateral Screening Mammogram, [facility]. 09/14/2022 Bilateral MG 3D screening mammo w/cad, [facility]. 12/19/2023 Bilateral MG 3D screening mammo w/cad, [facility]. Tissue Density: There are scattered areas of fibroglandular density. Findings: Analyzed By CAD. Right breast: There is no suspicious group of microcalcifications or new suspicious mass. Left breast: There is no suspicious group of microcalcifications or new suspicious mass. Overall Assessment: Negative, BI-RAD 1 Management: Screening Mammogram of both breasts in [address] [facility] will attempt to contact patient to return for supplemental views and ultrasound if indicated. Patient should continue monthly self-breast exams. A clinical breast exam by your physician is recommended on an annual basis. This exam should not preclude additional follow-up of suspicious palpable abnormalities. Note on Jade scores and lifetime risk: 1. A Jade score greater than 3% is considered moderate risk. If this is the case, consider specialist referral to assess eligibility for a risk reducing agent. 2. If overall lifetime risk for the development of breast cancer is 20% or higher, the patient may qualify for future screening with alternating mammogram and breast MRI. [facility], , 01/18/2025 7:34 AM. Electronically signed and approved by: Sudheer Miguel DO
== END | disposition home or self-care (01) ==
LOC: RADMAMWWP 16:00
PROVIDERS: ATTEND Obstetrics & Gynecology
DX: Z12.31 Encounter for screening mammogram for malignant neoplasm of breast (principal); R92.323 Mammographic fibroglandular density, bilateral breasts; Z78.0 Asymptomatic menopausal state
CPT/HCPCS: 77063; 77067